=== PATIENT | male | born 1940 | race African-American/Black ===

== ENCOUNTER 2017-06-07 16:05 | Emergency (ER) | payer MEDICARE ==
[2017-06-07] MEDS: fentaNYL PF VIAL 100 MCG/2 ML VIAL IM ×2 (17:10)
== END 2017-06-07 17:52 | disposition home or self-care (01) ==
LOC: ER 16:05
DX: S82.091A Other fracture of right patella, initial encounter for closed fracture (principal); I12.0 Hypertensive chronic kidney disease with stage 5 chronic kidney disease or end stage renal disease; N18.6 End stage renal disease; M10.9 Gout, unspecified; Z99.2 Dependence on renal dialysis; Z91.040 Latex allergy status; W19.XXXA Unspecified fall, initial encounter; Y93.89 Activity, other specified; Y92.89 Other specified places as the place of occurrence of the external cause; Y99.8 Other external cause status
CPT/HCPCS: 29105; 29505; 73564; 96372; 99284-25; J3010

== ENCOUNTER 2020-08-09 14:04 | Emergency (ER) | payer MEDICARE ==
[~2020-08-09] VITALS: Ht 180.3 cm; Wt 90.9 kg
[~2020-08-09 14:04] MED LIST: ACET325T9 PO; ALLO100T66 PO; AMLO10TA4 PO; ASPI-630 PO; CARV6.25 PO; CLON0.2T PO; ERGO500027 PO; FERR325T14 PO; FERR325T58 PO; FURO-68 PO; HYDR-2761 PO; HYDR-2868 PO; HYDR-3135 PO; LOSA-73 PO; LOSA1TAB25 PO; OXYB5TAB10 PO; TAMS0.4C97 PO; VERA240C2 PO
--- NOTE | 2020-08-09 14:33 | PHYS DOC ---
Past Medical History Past Medical History: Anemia, Arrhythmia, Diverticulosis, Hypertension, Kidney Stone, Renal Failure, Other Additional Past Medical Histor: BPH,ESRD,GOUT Past Surgical History: Other Additional Past Surgical Histo: AV fistula LUE,Rt Chest Smoking Status: Former Smoker Alcohol Use: None Drug Use: None General Adult EDM: Chief Complaint: TRAUMA ALERT HPI: HPI: This is a pleasant 79-year-old male who presents emergency department today after sustaining a mechanical fall when he tried to kick the rug and fell backwards landing on his head. He did not lose consciousness while he was in the waiting room the patient passed out. He denies any other injuries other than some mild neck stiffness. He is able to bear weight bilaterally in his hips and denies any hip pain. He denies lower back pain chest pain or shortness of breath.onset today. location head. duration constant. Review of systems is negative for chest pain shortness of breath abdominal pain hip pain or any other injury to his extremities. All other review of systems negative . ED course: 79-year-old male presenting after mechanical fall injuring himself and sustaining a scalp laceration. When he came into the emergency department he was bleeding profusely at the net front end developer and passed out while he was being put in a wheelchair. We brought him back immediately and placed carlton in the wound and put a pressure dressing on. No other injuries identified on secondary survey. Head and neck CT ordered. Head ct shows no acute intracranial findings. Chronic subdural hygromas/ effusion not excluded. I spoke with Dr. Terrell our nsg who reviewed the film and recommends outpt follow up for this. F/u: outpt with pcp in 1-2 days for repeat h/h. Outpt nsg within 5-7 days for reevaluation by nsg. Procedure note: I place 5 carlton in the laceration to the scalp. no complications. wound length 1.5 cm. Review of Systems: Review of Systems: Constitutional: Denies fever or chills. [] Eyes: Denies change in visual acuity. [] HENT: Denies nasal congestion or sore throat. [] Respiratory: Denies cough or shortness of breath. [] Cardiovascular: Denies chest pain or edema. [] GI: Denies abdominal pain, nausea, vomiting, bloody stools or diarrhea. [] : Denies dysuria. [] Musculoskeletal: Denies back pain or joint pain. [] Integument: Denies rash. [] Neurologic: Denies headache, focal weakness or sensory changes. [] Endocrine: Denies polyuria or polydipsia. [] Lymphatic: Denies swollen glands. [] Psychiatric: Denies depression or anxiety. [] Heart Score: C/O Chest Pain: No Risk Factors: Risk Factors: DM, Current or recent (<one month) smoker, HTN, HLP, family history of CAD, obesity. Risk Scores: Score 0 - 3: 2.5% MACE over next 6 weeks - Discharge Home Score 4 - 6: 20.3% MACE over next 6 weeks - Admit for Clinical Observation Score 7 - 10: 72.7% MACE over next 6 weeks - Early Invasive Strategies Allergies: Allergies: Allergies Coded Allergies Type Severity Reaction Last Updated Verified latex Allergy Intermediate RASH ON HANDS 12/19/14 Yes Physical Exam: PE: Constitutional: Well developed, well nourished. Bleeding profusely originally from his scalp laceration with a towel from home covered in blood overlying the wound. HENT: bilateral external ears normal, oropharynx moist, no oral exudates, nose normal. [] Eyes: PERRLA, EOMI, conjunctiva normal, no discharge. [] Neck: Normal range of motion, no tenderness, supple, no stridor. [] Cardiovascular:Heart rate regular rhythm, no murmur [] Lungs & Thorax: Bilateral breath sounds clear to auscultation [] Abdomen: Bowel sounds normal, soft, no tenderness, no masses, no pulsatile masses. [] Skin: Warm, dry, no erythema, no rash. [] Back: No tenderness, no CVA tenderness. [] Extremities: No tenderness, no cyanosis, no clubbing, ROM intact, no edema. [] Neurologic: Alert and oriented X 3, normal motor function, normal sensory function, no focal deficits noted. [] Psychologic: Affect normal, judgement normal, mood normal. [] General Appearance alert, cooperative, no distress, responsive Head laceration to the posterior occiput approximately 1.5 cm in length. Eyes conjunctivae/corneas clear. PERRL, EOM's intact. Nose Nares normal. Septum midline. Mucosa normal. No drainage or sinus tenderness. Throat no blood or lacerations, normal alignment Neck supple, symmetrical, trachea midline, cervical collar in place Back/Spine symmetric, normal curvature. ROM normal, no abrasions, no tenderness to palpation, no step-offs Lungs clear to auscultation bilaterally Chest Wall normal ribcage without tenderness to palpation, crepitus or emph ysema Heart reg rate and regular rhythm, S1, S2 normal, no murmur, click, rub or gallop Abdomen soft, non-tender. Bowel sounds normal. No masses, no organomegaly Pelvic stable Extremities extremities normal, atraumatic with normal range of motion. Normal neurovascular status. Nontender at the joints. Able to bear weight on his lower extremities without any pain. Pulses 2+ and symmetric Skin Skin color, texture, turgor normal. No rashes or lesions Neurologic Grossly normal Eye opening: (4) spontaneous Best motor response: (6) obeys verbal command Best verbal response: (5) oriented and converses Total Angela (E + M + V) = 15 EKG: EKG: [] Radiology/Procedures: Radiology/Procedures: [] Course & Med Decision Making: Course & Med Decision Making Pertinent Labs and Imaging studies reviewed. (See chart for details) [] Dragon Disclaimer: [employer] Disclaimer: This electronic medical record was generated, in whole or in part, using a voice recognition dictation system. Departure Departure Impression: Primary Impression: Head trauma Additional Impression: Scalp laceration Disposition: 01 HOME / SELF CARE / HOMELESS Condition: STABLE Referrals: TAMARA GUZMÁN MD (PCP) Patient Instructions: Head Injury, Adult Additional Instructions: EMERGENCY DEPARTMENT GENERAL DISCHARGE INSTRUCTIONS Follow-up with your primary physician in 1 to 2 days. Return to the emergency department if you have any new or concerning findings. Thank you for coming to [facility] Emergency Department (ED) today and trusting us with you care. We trust that you had a positive experience in our Emergency Department. If you wish to speak to the department management, you may call the Director at [phone]. Follow up is important in emergency/acute care visits. This condition should be evaluated by your primary care physician and any necessary consulting services for continued management within a few days (1-2) after discharge. Return to the emergency department if you have any new or concerning symptoms including but not limited to fever, chills, nausea, vomiting, intractable pain, any new rashes, chest pain, shortness of breath, uncontrolled bleeding, difficulty breathing, and/or vision loss. 1. Do you have a private Doctor? If you do not have a private doctor, please ask for a resource list of physicians or clinics that may be able to assist you with follow up care. 2. If a lab test or culture has been done and does not come back immediately, your results will be reviewed and you will be notified if you need a change in treatment. 3. Your care today has been supervised by a physician who is specially trained in emergency care. Many problems require more than one evaluation for a complete diagnosis and treatment. We recommend that you schedule your follow up appointment as recommended to ensure complete treatment of you illness or injury. If you are unable to obtain follow up care and continue to have a problem, or if your condition worsens, we recommend that you return to the ED. 4. We are not able to safely determine your condition over the phone nor are we able to give sound medical advice over the phone. For these safety reasons, if you call for medical advice we will ask you to come to the ED for further evaluation. IF YOUR SYMPTOMS WORSEN OR NEW SYMPTOMS DEVELOP, OR YOU HAVE CONCERNS ABOUT YOUR CONDITION; OR IF YOUR CONDITION WORSENS WHILE YOU ARE WAITING FOR YOUR FOLLOW UP APPOINTMENT; EITHER CONTACT YOUR PRIMARY CARE DOCTOR, THE PHYSICIAN WHOSE NAME AND NUMBER YOU WERE GIVEN, OR RETURN TO THE ED IMMEDIATELY. ALISIA ZAMARRIPA MD Aug 09, 2020 14:33
[2020-08-09] MEDS ORDERED: DIPH,PERTUSS(ACELL),TET VAC/PF 0.5 ML SYRINGE. VAX IM ONE (14:45)
[2020-08-09 14:52] LABS: BASO # 0.1 x10^3/uL (0.0-0.2); BASO % 2 % (0-3); EOS # 0.2 x10^3/uL (0.0-0.7); EOS % 4 % (0-3); HEMATOCRIT 27.8 % (39.0-53.0); HEMOGLOBIN 9.5 g/dL (13.0-17.5); LYMPH # 0.9 x10^3/uL (1.0-4.8); LYMPH % 20 % (24-48); MEAN CORPUSCULAR HEMOGLOBIN 31 pg (25-35); MEAN CORPUSCULAR HGB CONC 34 g/dL (31-37); MEAN CORPUSCULAR VOLUME 91 fL (79-100); MONO # 0.4 x10^3/uL (0.0-1.1); MONO % 9 % (0-9); NEUT # 2.9 x10^3/uL (1.8-7.7); NEUT % 66 % (31-73); PLATELET COUNT 140 x10^3/uL (140-400); RED BLOOD COUNT 3.06 x10^6/uL (4.30-5.70); RED CELL DISTRIBUTION WIDTH 17.5 % (11.5-14.5); WHITE BLOOD COUNT 4.4 x10^3/uL (4.0-11.0)
--- NOTE | 2020-08-09 14:52 | RAD ---
ADDENDUM #1 Addendum: As noted in the findings section of the report, there is heterogeneous enlargement of the r ight thyroid lobe. This may be due to nodules. This can be better assessed with a thyroid sonogram. Electronically signed by: Mikki Vigil MD (08/09/2020 3:25 PM) [facility] ORIGINAL REPORT EXAM: Head and cervical spine CT without contrast. HISTORY: Trauma. TECHNIQUE: Computed tomographic images of the head and cervical spine were obtained without contrast. *One or more of the following individualized dose reduction techniques were utilized for this examina tion: 1. Automated exposure control. 2. Adjustment of the mA and/or kV according to patient size. 3. Use of iterative reconstruction technique. COMPARISON: None. FINDINGS: Head: There is no hemorrhage. There is no mass effect or midline shift. There is no hydrocephalus. Th ere is increased bifrontal extra-axial space due to frontal predominant cerebral volume loss. The pos sibly of chronic subdural hygromas/effusions is not excluded. There are areas of hypodensity within t he cerebral white matter, likely due to chronic small vessel disease. The orbits are unremarkable. Th e paranasal sinuses mastoid air cells are clear. There is no calvarial lesion. There is a posterior l eft scalp soft tissue hematoma and there are skin carlton due to a laceration. No foreign body is see n. Cervical spine: There is mild multilevel listhesis. There is degenerative endplate remodeling with di sc space narrowing and osteophytosis at multiple levels. There are multiple endplate Schmorl's nodes. There are few osseous hemangiomas. There aren't erosions involving the dens, a finding which can be seen as a sequela of rheumatoid arthritis. There is advanced degenerative change at T2-T3. The combin ation of degenerative changes results in mild lateral foraminal and central canal stenosis at C2-C3, severe right and moderate left foraminal and mild central canal stenosis at C3-C4, mild central canal stenosis at C4-C5, moderate right and severe left foraminal and mild central canal stenosis at C5-C6 , and moderate right greater than left foraminal and mild central canal stenosis at C6-C7, and modera te to severe left foraminal stenosis at C7-T1. There is calcified atherosclerotic plaque involving th e carotid bifurcations. There is heterogeneous enlargement of the right thyroid lobe. The lung apices are unremarkable. IMPRESSION: 1. No acute intracranial finding. 2. Bilateral cerebral white matter changes, likely due to chronic small vessel disease. 3. Cerebral volume loss with increased bifrontal extra-axial space. The possibility of chronic bilate ral subdural hygromas/effusion is not excluded. 4. Multilevel degenerative change involving the cervical spine and upper thoracic spine, described in detail above. This results in stenosis at multiple levels. 5. Posterior left scalp soft tissue hematoma and laceration. No foreign body is seen. Electronically signed by: Mikki Vigil MD (08/09/2020 2:50 PM) [facility]
[2020-08-09 15:01] LABS: PROTHROMBIN TIME PATIENT 14.4 SEC (11.7-14.0)
[2020-08-09 15:02] LABS: CALCIUM 8.3 mg/dL (8.5-10.1); CREATININE 6.8 mg/dL (0.7-1.3); GFR 9.6
[2020-08-09 15:08] LABS: ALBUMIN 2.7 g/dL (3.4-5.0); ALBUMIN/GLOBULIN RATIO 0.9 (1.0-1.7); TOTAL BILIRUBIN 0.4 mg/dL (0.2-1.0); TOTAL PROTEIN 5.7 g/dL (6.4-8.2)
--- NOTE | 2020-08-09 15:57 | EKG ---
[facility] [address] [place] [address] Test Date: 2020-08-09 Test Time: 15:25:19 Pat Name: CONOR CONNELL Department: Room: Gender: M [employer]: : 1940 Requested By: ALISIA ZAMARRIPA Order Number: [id number] Reading MD: Measurements Intervals [place] Rate: 56 P: -39 AR: 238 QRS: -30 QRSD: 84 T: 38 QT: 488 QTc: 474 Interpretive Statements SINUS RHYTHM ATRIAL PREMATURE COMPLEX(ES) PROLONGED AR INTERVAL ABNORMAL LEFT AXIS DEVIATION LEFT ANTERIOR FASCICULAR BLOCK PROLONGED QT ABNORMAL ECG RI6.02 No previous ECG available for comparison
[2020-08-09 17:38] VITALS: BP 155/82
== END 2020-08-09 18:08 | disposition home or self-care (01) ==
LOC: ER 14:04
DX: S01.01XA Laceration without foreign body of scalp, initial encounter (principal); D64.9 Anemia, unspecified; I12.9 Hypertensive chronic kidney disease with stage 1 through stage 4 chronic kidney disease, or unspecified chronic kidney disease; N18.9 Chronic kidney disease, unspecified; Z87.891 Personal history of nicotine dependence; Z98.890 Other specified postprocedural states; Z91.040 Latex allergy status; W18.39XA Other fall on same level, initial encounter; Y93.89 Activity, other specified; Y92.89 Other specified places as the place of occurrence of the external cause; Y99.8 Other external cause status
CPT/HCPCS: 12001; 36415; 70450; 72125; 80053; 84484; 85025; 85610; 85730; 90471; 90715; 93005; 99285